=== PATIENT | female | born 1940 | race Two or more races ===

== ENCOUNTER 2019-04-24 06:00 | Outpatient (CLI) | payer OTHER ==
[~2019-04-24] VITALS: Ht 149.9 cm; Wt 49.0 kg
[2019-04-24] MEDS ORDERED: PANADOL MAXIMU500 MG PO (13:22)
[2019-04-24] MEDS ORDERED: PREVACID30 MG PO (13:23)
[2019-04-24] MEDS ORDERED: NEURIN SL (13:23)
[2019-04-24] MEDS ORDERED: COD LIVER OIL1 EACH PO (13:24)
== END 2019-04-24 06:05 | disposition home or self-care (01) ==
LOC: EKG 06:00 → EDSTATUS 04-28 09:30 → O/R 04-28 09:30
DX: C54.1 Malignant neoplasm of endometrium (principal); Z01.810 Encounter for preprocedural cardiovascular examination

== ENCOUNTER 2019-04-25 14:35 | Inpatient (IN) | payer OTHER ==
[~2019-04-25] VITALS: Ht 149.9 cm; Wt 47.6 kg
[~2019-04-25 14:35] MED LIST: COD LIVER OIL1 EACH PO; NEURIN SL; PANADOL MAXIMU500 MG PO; PREVACID30 MG PO
[2019-04-28] MEDS ORDERED: VITAMIN D2000 UNI1 PO (09:21)
[2019-04-28] MEDS ORDERED: ABANEU-SL TABL1 EACH (09:22)
[2019-05-07] MEDS ORDERED: AMLODIPINE BESYL5 MG PO (13:42)
[2019-05-07] MEDS ORDERED: OXYC1TAB9 PO (13:42)
[2019-05-07] MEDS ORDERED: ELIQUIS5 MG PO (13:42)
[2019-05-07] MEDS ORDERED: FENTANYL1 EAC3 TD (13:43)
== END 2019-05-07 18:03 | disposition home health service (06) | DRG 177 ==
LOC: OB/GYN 14:35 → SURG 14:35 → OB/GYN 04-29 20:27
PROVIDERS: ADMIT Internal Medicine
PROC: BW21ZZZ Computerized Tomography (CT Scan) of Abdomen and Pelvis (ICD-10-PCS; principal; 2019-04-26)
PROC: 4A033R1 Measurement of Arterial Saturation, Peripheral, Percutaneous Approach (ICD-10-PCS; 2019-04-26)
PROC: 30233N1 Transfusion of Nonautologous Red Blood Cells into Peripheral Vein, Percutaneous Approach (ICD-10-PCS; 2019-04-28)
PROC: 3E0436Z Introduction of Nutritional Substance into Central Vein, Percutaneous Approach (ICD-10-PCS; 2019-04-29)
PROC: 02HV33Z Insertion of Infusion Device into Superior Vena Cava, Percutaneous Approach (ICD-10-PCS; 2019-04-29)
PROC: 3E0F7GC Introduction of Other Therapeutic Substance into Respiratory Tract, Via Natural or Artificial Opening (ICD-10-PCS; 2019-04-30)
PROC: BB24Y0Z Computerized Tomography (CT Scan) of Bilateral Lungs using Other Contrast, Unenhanced and Enhanced (ICD-10-PCS; 2019-05-01)
PROC: B54DZZZ Ultrasonography of Bilateral Lower Extremity Veins (ICD-10-PCS; 2019-05-01)
DX: J69.0 Pneumonitis due to inhalation of food and vomit (principal); J80 Acute respiratory distress syndrome; K56.690 Other partial intestinal obstruction; J44.1 Chronic obstructive pulmonary disease with (acute) exacerbation; T17.898A Other foreign object in other parts of respiratory tract causing other injury, initial encounter; N13.1 Hydronephrosis with ureteral stricture, not elsewhere classified; N17.8 Other acute kidney failure; J98.11 Atelectasis; J90 Pleural effusion, not elsewhere classified; G72.81 Critical illness myopathy; I87.2 Venous insufficiency (chronic) (peripheral); C54.1 Malignant neoplasm of endometrium; D63.8 Anemia in other chronic diseases classified elsewhere; K21.0 Gastro-esophageal reflux disease with esophagitis; R19.09 Other intra-abdominal and pelvic swelling, mass and lump; R31.29 Other microscopic hematuria; Z66 Do not resuscitate; Z79.01 Long term (current) use of anticoagulants
CPT/HCPCS: 71275